=== PATIENT | male | born 1980 | race Caucasian/White ===

== ENCOUNTER 2016-12-28 14:42 | Emergency (ER) | payer BC ==
[~2016-12-28] VITALS: Ht 175.3 cm; Wt 78.9 kg
[~2016-12-28 14:42] MED LIST: BACTRIM,SEPT1 TABLET PO; INDOCIN50 MG PO; PERCOCET 5/31 TABLET PO
[2016-12-28] MEDS ORDERED: BACTRIM,SEPT1 TABLET PO (16:31)
[2016-12-28 17:11] VITALS: BP 125/77
== END 2016-12-28 17:16 | disposition home or self-care (01) ==
LOC: EME 14:42
PROC: 0H9LXZZ Drainage of Left Lower Leg Skin, External Approach (ICD-10-PCS; principal; 2016-12-28)
DX: L02.416 Cutaneous abscess of left lower limb (principal); S81.802A Unspecified open wound, left lower leg, initial encounter; W22.8XXA Striking against or struck by other objects, initial encounter; F17.200 Nicotine dependence, unspecified, uncomplicated
CPT/HCPCS: 99281; 99283